=== PATIENT | female | born 1945 | race African-American/Black ===

== ENCOUNTER 2017-12-03 18:41 | Inpatient (IN) | payer OTHER ==
[~2017-12-03] VITALS: Ht 154.9 cm; Wt 73.9 kg
--- NOTE | 2017-12-03 19:05 | NUR ---
BBRA 37 FROM [facility] C/O WEAKNESS SINCE TODAY. PT IS AAOX4. PT DENIES N/V/D. PT DENIES DIZZINESS/BLURRED VISSION AT TIME OF ASSESSMENT, HOWEVER PT DOES STATE + TO DIZZINESS PRIOR TO HER FALL. -KO. SKIN WNL. NO S/S OF ACUTE DISTRESS NOTED. VSS. RESP ECVEN AND UNLABORED. PT NOTED TO BE MILDLY DROWSY, BUT ABLE TO SPEAK FULL SENTENCES WITH CLEAR ARTICULATION. PT PLACED ON COMPOSITION MOLDER AND POX. PT SAFETY AND COMFROT MEASURES IN PLACE. AWAITING MD FOR EVAL.
[2017-12-03 20:08] LABS: BASOPHILS # (AUTO) 0.2 /CMM (0.0-0.2); BASOPHILS % (AUTO) 2.6 % (0.0-2.0); EOSINOPHILS % (AUTO) 2.4 % (0.0-6.0); HEMATOCRIT 33 % (33-45); HEMOGLOBIN 11.2 g/dL (11.5-14.8); LYMPHOCYTES # (AUTO) 0.6 /CMM (0.8-4.8); LYMPHOCYTES % (AUTO) 10.8 % (20.0-44.0); MEAN CORPUSCULAR HGB CONC 34 g/dl (31.0-36.0); MEAN CORPUSCULAR VOLUME 84 fL (82-100); MONOCYTES # (AUTO) 0.4 /CMM (0.1-1.30); MONOCYTES % (AUTO) 6.7 % (2.0-12.0); NEUTROPHILS # (AUTO) 4.7 /CMM (1.8-8.9); NEUTROPHILS % (AUTO) 77.5 % (43.0-81.0); PLATELET COUNT (AUTO) 217 /CMM (150-450); RDW COEFFICIENT OF VARIATION 14.8 (11.5-15.0); RED BLOOD CELL COUNT(AUTO) 3.97 MIL/uL (4.0-5.2)
[2017-12-03 20:18] LABS: CALCIUM, SERUM 9.1 mg/dL (8.5-10.1); CARBON DIOXIDE 28 mmol/L (21-32); CHLORIDE 100 mmol/L (98-107); CREATININE 2.7 mg/dL (0.6-1.3); GLUCOSE 135 mg/dL (74-106); POTASSIUM 3.7 mmol/L (3.5-5.1); SODIUM SERUM 137 mmol/L (136-145); UREA NITROGEN, BLOOD 56 mg/dL (7-18)
[2017-12-03 20:21] LABS: INR 0.97 (0.85-1.15)
[2017-12-03 20:26] LABS: TROPONIN I < 0.017 ng/mL (0.00-0.056)
[2017-12-03] MEDS ORDERED: IV NS 0.9% 1,000 ML BAG IV ONE (21:00)
--- NOTE | 2017-12-03 21:14 | NUR ---
CALLED [facility] FOR PANEL CALL AND DR DIAZ WAS PAGED.
--- NOTE | 2017-12-03 21:27 | NUR ---
PT IS ASSIGNED TO [facility]#: [id number], PT IS DIAGNOSED WITH ACUTE RENAL FAILURE, AND DR DIAZ IS THE ACCEPTING MD.
[2017-12-03] MEDS ORDERED: ATOR20TA PO (21:30)
[2017-12-03] MEDS ORDERED: SERT100T PO (21:30)
[2017-12-03] MEDS ORDERED: BUPR-51 PO (21:30)
[2017-12-03] MEDS ORDERED: IBUP-1953 PO (21:30)
[2017-12-03] MEDS ORDERED: HYDR-3980 PO (21:30)
[2017-12-03] MEDS ORDERED: METO50TA16 PO (21:30)
[2017-12-03] MEDS ORDERED: ANAS1TAB8 PO (21:30)
[2017-12-03] MEDS ORDERED: AMLO10TA4 PO (21:30)
[2017-12-03] MEDS ORDERED: ARIP5TAB10 PO (21:30)
[2017-12-03] MEDS ORDERED: TEMA30CA PO (21:30)
[2017-12-03] MEDS ORDERED: LOSA1TAB39 PO (21:30)
[2017-12-03] MEDS ORDERED: TRAM50TA2 PO (21:30)
[2017-12-03] MEDS ORDERED: LEVO25TA7 PO (21:30)
--- NOTE | 2017-12-03 22:00 | NUR ---
REPORT GIVEN TO IGNACIO/COMFORT ON BEHALF OF PRIMARY NURSE LISET.
[2017-12-03 22:15] VITALS: BP 110/71
--- NOTE | 2017-12-03 22:15 | NUR ---
MS RN ADMITTING NOTES: ADMITTED A 72 YO FEMALE PATIENT WHO WAS BROUGHT TO ER FROM [facility] DUE TO GENERALIZED WEAKNESS. PATIENT ALSO REPORTED THAT SHE HAS BEEN LOSING HER BALANCE AND FALLING MORE OFTEN IN THE PAST 6 MONTHS, THE LATEST OF SHICH WAS LAST FRIDAY. PATIENT WAS BROUGHT TO MS FLOOR VIA GURNEY, AOX4, ON ROOM AIR, BREATHING EVEN AND UNLABORED. BREATH SOUNDS CLEAR TO AUSCULTATION. APPEARS CALM AND IN NO DISTRESS. DENIES PAIN. PATIENT HAS PIV OVER LAC G20, HOWEVER, SINCE PATIENT HAS REPORTED HISTORY OF LEFT PARTIAL MASTECTOMY LAST JUN 2017, RECOMMENDED TO HER THAT IV WILL BE PLACED OVER R ARM, AND PATIENT AGREED. ADMITTING CARE DONE. PROVIDED FOR COMFORT AND SAFETY. BED IN LOWEST AND LOCKED POSITION, SIDERAILS UP X 3, CALL LIGHT WITHIN REACH. WILL CONT TO MONITOR.
--- NOTE | 2017-12-03 23:20 | NUR ---
RN NOTES: PATIENT IS ASKING FOR SLEEPING PILL, AND SHE TAKES TEMAZEPAM 30 MG AT NIGHT FOR HER INSOMNIA. SPOKE TO DR DIAZ FOR SLEEPING PILL, PER DR DIAZ, OK TO CONTINUE TEMAZEPAM 30 MG 1 CAP AT BEDTIME.
[2017-12-03] MEDS ORDERED: MAGNESIUM HYDROXIDE 30 ML UDC PO PRN (23:30)
[2017-12-03] MEDS ORDERED: ACETAMINOPHEN 325 MG TABLET PO PRN (23:30)
[2017-12-03] MEDS ORDERED: HYDROCODONE/APAP 5/325MG 1 EACH TABLET PO PRN (23:30)
[2017-12-03] MEDS ORDERED: Z GUARD REMEDY 2 OZ OINT TP PRN (23:30)
[2017-12-03] MEDS ORDERED: MAG HYDROX/AL HYDROX/SIMETH 30 ML UDC PO PRN (23:30)
[2017-12-03] MEDS ORDERED: TRAMADOL HCL 50 MG TABLET PO PRN (23:30)
[2017-12-03] MEDS ORDERED: ONDANSETRON HCL/PF 4 MG/2 ML VIAL IVP PRN (23:30)
[2017-12-04] MEDS: IV NS 0.9% 1,000 ML IV PRN ×2 (00:08→15:25)
[2017-12-04] MEDS: TEMAZEPAM 15 MG CAPSULE PO PRN (01:06)
[2017-12-04 04:00] VITALS: BP 109/54
--- NOTE | 2017-12-04 06:35 | NUR ---
RN NOTES: RECEIVED CRITICAL LAB CALL FROM [facility] (LAB). PATIENT'S PLATELET COUNT IS 49. ASKED FOR RE-DRAW SINCE LAST NIGHT, PLATELET WAS 217.
[2017-12-04 06:47] LABS: CALCIUM, SERUM 8.9 mg/dL (8.5-10.1); CARBON DIOXIDE 24 mmol/L (21-32); CHLORIDE 104 mmol/L (98-107); GLUCOSE 115 mg/dL (74-106); MAGNESIUM 2.5 mg/dL (1.8-2.4); PHOSPHORUS 4.4 mg/dL (2.5-4.9); POTASSIUM 3.3 mmol/L (3.5-5.1); SODIUM SERUM 139 mmol/L (136-145); UREA NITROGEN, BLOOD 56 mg/dL (7-18)
[2017-12-04 07:18] LABS: BASOPHILS % (AUTO) 0.1 % (0.0-2.0); EOSINOPHILS % (AUTO) 1.7 % (0.0-6.0); HEMATOCRIT 28 % (33-45); LYMPHOCYTES # (AUTO) 0.7 /CMM (0.8-4.8); LYMPHOCYTES % (AUTO) 12.8 % (20.0-44.0); MEAN CORPUSCULAR HGB CONC 33 g/dl (31.0-36.0); MEAN CORPUSCULAR VOLUME 84 fL (82-100); MONOCYTES # (AUTO) 0.6 /CMM (0.1-1.30); NEUTROPHILS # (AUTO) 4.3 /CMM (1.8-8.9); NEUTROPHILS % (AUTO) 75.4 % (43.0-81.0); PLATELET COUNT (AUTO) 166 /CMM (150-450); RDW COEFFICIENT OF VARIATION 15.9 (11.5-15.0); RED BLOOD CELL COUNT(AUTO) 3.28 MIL/uL (4.0-5.2); WHITE BLOOD COUNT (AUTO) 5.8 K/uL (4.3-11.0)
--- NOTE | 2017-12-04 07:20 | NUR ---
MS RN CLOSING NOTES: PATIENT IN BED, AOX4, ON ROOM AIR, BREATHING EVEN AND UNLABORED. APPEARS CALM AND IN NO DISTRESS. PIV OVER LAC G 22 INTACT AND INFUSING WELL WITH NS RUNNING AT 75 ML/HR. NO ACUTE CHANGE IN CONDITION NOTED THROUGH SHIFT. BED IN LOWEST AND LOCKED POSITION, SIDERAILS UP X 3, CALL LIGHT WITHIN REACH. WILL ENDORSE TO AM RN FOR EUN.
--- NOTE | 2017-12-04 07:28 | NUR ---
DRAFTER DETAIL OPENING NOTES PATIENT IS ALERT AND ORIENTED X4. RECEIVED PATIENT IN STABLE CONDITION. IN NO APPARENT DISTRESS. BEDSIDE RAILS ARE UPX2. BED IS LOCKED AND LOWERED. CALL LIGHT IS WITHIN REACH. IV LINE IS INTACT AND PATENT. WILL CONTINUE TO MONITOR.
[2017-12-04 08:00] VITALS: BP 133/62
[2017-12-04] MEDS: AMLODIPINE BESYLATE 10 MG TABLET PO SCH (08:31)
[2017-12-04] MEDS: ANASTROZOLE 1 MG TABLET PO SCH (08:31)
[2017-12-04] MEDS: BUPROPION XL 150 MG TAB.ER.24 PO SCH (08:32)
[2017-12-04] MEDS: LEVOTHYROXINE SODIUM 25 MCG TABLET PO SCH (08:32)
[2017-12-04] MEDS: ATORVASTATIN 10 MG TABLET PO SCH (08:32)
[2017-12-04] MEDS: ARIPIPRAZOLE 5 MG TABLET PO SCH (08:32)
[2017-12-04] MEDS: LOSARTAN/HCTZ 50-12.5MG/ 1 EA TABLET PO SCH (08:33)
[2017-12-04] MEDS: METOPROLOL TARTRATE 50 MG TABLET PO SCH ×2 (08:33→16:46)
[2017-12-04] MEDS: SERTRALINE HCL 50 MG TABLET PO SCH (08:33)
[2017-12-04] MEDS: HYDROCODONE/APAP 10/325MG 1 EA TABLET PO SCH ×3 (08:35→20:35)
[2017-12-04] MEDS ORDERED: POTASSIUM CHLORIDE 10 MEQ TABLET.SA PO ONE (12:30)
--- NOTE | 2017-12-04 12:45 | NUR ---
ADMINISTERED POTASSIUM 10MEQ. WAS UNABLE TO SCAN PACKAGE DUE TO COMPUTER SHUTTING OFF.
[2017-12-04 16:00] VITALS: BP 110/54
--- NOTE | 2017-12-04 18:58 | NUR ---
MS RN CLOSING NOTES PATIENT IS IN STABLE CONDITION. IN NO APPARENT DISTRESS. BEDSIDE RAILS ARE UPX2. BED IS LOCKED AND LOWERED. CALL LIGHT IS WITHIN REACH. ALL NEEDS WERE MET. IV LINE IS INTACT AND PATENT. WILL ENDORSE CARE TO ULTIMATE HOOPS TRAINER NURSE FOR EUN.
--- NOTE | 2017-12-04 19:10 | NUR ---
MS RN NOTES RECEIVED PT IN BED, AWAKE,WATCHING TV AT THIS TIME, A/ 0 X 4, VERBALLY RESPONSIVE. IV SITE ON RAC INTACT AND PATENT, IVF INFUSING WELL. NO S/S OF INFILTRATION NOTED. DENIES ANY PAIN OR DISCOMFORT AT THIS TIME. ALL NEEDS ATTENDED AND MET. KEPT COMFORTABLE. SAFETY/ FALL PRECAUTIONS OBSERVED. CALL LIGHT WITHIN REACH. WILL CONT TO MONITOR.
[2017-12-04 20:00] VITALS: BP 128/66
[2017-12-04 20:33] VITALS: BP 128/66
[2017-12-05] MEDS: TEMAZEPAM 15 MG CAPSULE PO PRN ×2 (00:11→21:49)
[2017-12-05] MEDS: IV NS 0.9% 1,000 ML IV PRN (06:29)
--- NOTE | 2017-12-05 06:45 | NUR ---
MS RN NOTES PT IN BED, RESTING COMFORTABLY AT THIS TIME. AROUSES EASILY. A/ 0 X 4, VERBALLY RESPONSIVE. IV SITE ON RAC INTACT AND PATENT, IVF INFUSING WELL. NO S/S OF INFILTRATION NOTED. DENIES ANY PAIN OR DISCOMFORT AT THIS TIME. ALL NEEDS ATTENDED AND MET. KEPT COMFORTABLE. SAFETY/ FALL PRECAUTIONS OBSERVED. CALL LIGHT WITHIN REACH. WILL ENDORSE TO NEXT SHIFT FOR EUN.
[2017-12-05 06:55] LABS: BASOPHILS % (AUTO) 0.3 % (0.0-2.0); EOSINOPHILS % (AUTO) 3.9 % (0.0-6.0); HEMATOCRIT 28 % (33-45); HEMOGLOBIN 9.1 g/dL (11.5-14.8); LYMPHOCYTES % (AUTO) 25.2 % (20.0-44.0); MEAN CORPUSCULAR HGB CONC 33 g/dl (31.0-36.0); MEAN CORPUSCULAR VOLUME 84 fL (82-100); MONOCYTES # (AUTO) 0.4 /CMM (0.1-1.30); MONOCYTES % (AUTO) 9.9 % (2.0-12.0); NEUTROPHILS # (AUTO) 2.3 /CMM (1.8-8.9); NEUTROPHILS % (AUTO) 60.7 % (43.0-81.0); PLATELET COUNT (AUTO) 154 /CMM (150-450); RED BLOOD CELL COUNT(AUTO) 3.33 MIL/uL (4.0-5.2); WHITE BLOOD COUNT (AUTO) 3.8 K/uL (4.3-11.0)
[2017-12-05 07:11] LABS: CALCIUM, SERUM 8.6 mg/dL (8.5-10.1); CARBON DIOXIDE 27 mmol/L (21-32); CHLORIDE 106 mmol/L (98-107); CREATININE 1.4 mg/dL (0.6-1.3); GLUCOSE 82 mg/dL (74-106); POTASSIUM 3.3 mmol/L (3.5-5.1); SODIUM SERUM 141 mmol/L (136-145); UREA NITROGEN, BLOOD 43 mg/dL (7-18)
--- NOTE | 2017-12-05 07:40 | NUR ---
MS RN OPENING NOTES RECEIVED PATIENT IN STABLE CONDITON. IN NO APPARENT DISTRESS. BEDSIDE RAILS ARE UPX2. BED IS LOCKED AND LOWERED. CALL LIGHT IS WITHIN REACH. IV LINE IS INTACT AND PATENT. WILL CONTINUE TO MONITOR.
[2017-12-05 08:00] VITALS: BP 149/65
[2017-12-05] MEDS: LEVOTHYROXINE SODIUM 25 MCG TABLET PO SCH (08:48)
[2017-12-05] MEDS: ANASTROZOLE 1 MG TABLET PO SCH (08:48)
[2017-12-05] MEDS: BUPROPION XL 150 MG TAB.ER.24 PO SCH (08:48)
[2017-12-05] MEDS: AMLODIPINE BESYLATE 10 MG TABLET PO SCH (08:49)
[2017-12-05] MEDS: LOSARTAN/HCTZ 50-12.5MG/ 1 EA TABLET PO SCH (08:49)
[2017-12-05] MEDS: ARIPIPRAZOLE 5 MG TABLET PO SCH (08:49)
[2017-12-05] MEDS: METOPROLOL TARTRATE 50 MG TABLET PO SCH ×2 (08:50→17:04)
[2017-12-05] MEDS: SERTRALINE HCL 50 MG TABLET PO SCH (08:50)
[2017-12-05] MEDS: HYDROCODONE/APAP 10/325MG 1 EA TABLET PO SCH ×3 (08:50→21:42)
[2017-12-05] MEDS: ATORVASTATIN 10 MG TABLET PO SCH (08:50)
--- NOTE | 2017-12-05 08:58 | NUR ---
HELD METOPROLO. PATIENTS HEART RATE IS 57.
[2017-12-05] MEDS ORDERED: POTASSIUM CHLORIDE 20 MEQ TAB.PRT.SR PO SCH (10:00)
--- NOTE | 2017-12-05 11:06 | NUR ---
WOUND CARE CONSULT: PT PRESENTS WITH INTACT SKIN, SOME REDNESS TO BREASTFOLDS AND SACRAL SCARRING NOTED, PRESENT ON ADMISSION. RECOMMENDATIONS MADE FOR SKIN PROTECTION AND DISCUSSED WITH NURSING STAFF. PT IS INCONTINENT. CURRENT JAIDEN SCORE IS 14. WILL SEE PRN. VIZCAINO IN AGREEMENT WITH PLAN OF CARE. Addendum: 12/05/17 at 1108 by GINO BARTON WNDNU Amended: Links added.
[2017-12-05 12:13] LABS: THYROID STIMULATING HORMONE 2.733 uIU/mL (0.358-3.74)
[2017-12-05 15:42] LABS: APPEARANCE,URINE CLEAR (CLEAR); BILIRUBIN,URINE NEGATIVE (NEGATIVE); BLOOD, URINE NEGATIVE Ery/uL (NEGATIVE); COLOR,URINE YELLOW (YELLOW); KETONES,URINE NEGATIVE (NEGATIVE); LEUKOCYTE ESTERASE ,URINE NEGATIVE (NEGATIVE); NITRITE, URINE NEGATIVE (NEGATIVE); PROTEIN,URINE NEGATIVE (NEGATIVE); UGLUCOSE NEGATIVE (NEGATIVE); UROBILINOGEN,URINE 0.2 EU/dL (0.2)
[2017-12-05 16:00] VITALS: BP_SYST 121; BP_SYST 132; BP_DIAS 65; BP_DIAS 83
[2017-12-05] MEDS: POLYETHYLENE GLYCOL 3350 17 GM POWD.PACK PO PRN (17:03)
--- NOTE | 2017-12-05 18:30 | NUR ---
MS RN CLOSING NOTES PATIENT IS ALERT AND ORIENTED X4. IN NO APPARENT DISTRESS. BEDSIDE RAILS ARE UPX2. BED IS LOCKED AND LOWERED. CALL LIGHT IS WITHIN REACH. ALL NEEDS WERE MET. WILL ENDORSE CARE TO ANALYTIC PROGRAMMER NURSE FOR EUN. IV LINE IS INTACT AND PATENT
--- NOTE | 2017-12-05 19:20 | NUR ---
RN NOTES: RECEIVED AWAKE ON BED IN SEMI FOWLERS POSITION,A/OX4,ON ROOM AIR,IV CANNULA INTACT ON RIGHT WRIST g#22 WITH NS AT 75 ML/HR ONGOING,FOR STOOL OCCULT BLOOD, NO BM, HAD MIRALAX IN MORNING SHIFT AWAITING FOR RESULT,FALL,SAFETY AND ASPIRATION PRECAUTION OBSERVED, PER ENDORSEMENT PATIENT HAD MRSA NARES(+),AWAITING FOR INSTRUCTION FROM CN FOR ROOM CHANGE,NEED ISOLATION PRECAUTION.
[2017-12-05 20:00] VITALS: BP 118/61
--- NOTE | 2017-12-05 20:00 | NUR ---
RN NOTES: EXPLAINED TO PATIENT REGARDING ROOM CHANGE FOR ISOLATION PRECAUTION PURPOSE, SHE AGREED AND WAS MOVE TO ROOM 319, ISOLATION PRECAUTION OBSERVE FOR MRSA-NARES.
--- NOTE | 2017-12-05 22:00 | NUR ---
RN NOTES: ROUTINE PAIN MEDICATION GIVEN, THEN SHE ALSO REQUESTED FOR SLEEPING PILL,CALLS AND NEEDS ATTENDED,FALL AND SAFETY PRECAUTION OBSERVE, KEPT CALL LIGHT WITHIN EASY REACH AND INSTRUCT TO CALL FOR ASSISTANCE.
[2017-12-06] MEDS: IV NS 0.9% 1,000 ML IV PRN ×2 (03:29→16:54)
--- NOTE | 2017-12-06 03:34 | NUR ---
RN NOTES: ASLEEP IN THE NIGHT,KEPT ON CLOSE WATCH, VISUAL CHECK AT FREQUENT INTERVAL, NON PHARMACOLOGIC INTERVENTION RENDERED, ROOM ON DIM LIT AND PLAYED SOFT MUSIC,IVF FINISHED AT 0329, NEW BOTTLE STARTED NS AT 75 ML/HR VIA INFUSION PUMP.
--- NOTE | 2017-12-06 06:28 | NUR ---
RN NOTES: ASLEEP IN THE NIGHT, NO PAIN AND DISCOMFORT IN THE MORNING,IVF ONGOING,STILL NO BM,KEPT IN COMFORTABLE POSITION, BED LOW AND LOCKED, CALL LIGHT WITHIN EASY REACH ENDORSED FOR CONTINUITY OF CARE.
[2017-12-06 07:02] LABS: CALCIUM, SERUM 8.4 mg/dL (8.5-10.1); CARBON DIOXIDE 29 mmol/L (21-32); CHLORIDE 107 mmol/L (98-107); CREATININE 1.3 mg/dL (0.6-1.3); GLUCOSE 85 mg/dL (74-106); POTASSIUM 3.8 mmol/L (3.5-5.1); SODIUM SERUM 143 mmol/L (136-145); UREA NITROGEN, BLOOD 40 mg/dL (7-18)
--- NOTE | 2017-12-06 07:24 | NUR ---
MS/RN OPENING NOTES RECEIVED PT IN BED AWAKE IN NO ACUTE SIGNS OF DISTRESS. A/O X4 AND ABLE TO MAKE NEEDS KNOWN, DENIES PAIN OR DISCOMFORTS AT THIS TIME. CONTACT PRECAUTION MAINTAINED FO RMRSA OF NARES. ON ROOM AIR, BREATHING EVEN AND UNLABORED. IV ACCESS ON RIGHT WRIST INTACT AND PATENT, IVF OF NS @ 75ML/HR INFUSING, NO S/S OF INFILTRATION NOTED. HOB ELEVATED. BED IN LOW/LOCKED POSITION WITH B/L UPPER SIDE-RAILS UP. CALL LIGHT WITHIN EASY REACH. WILL CONTINUE TO MONITOR PT.
[2017-12-06] MEDS: LEVOTHYROXINE SODIUM 25 MCG TABLET PO SCH (07:44)
[2017-12-06 08:00] VITALS: BP 120/71
--- NOTE | 2017-12-06 08:10 | NUR ---
RN NOTES SPECIMEN FOR RAPID INFLUENZA ANTIGEN A + B COLLECTED AND CALLED LAB TO PICK SPECIMEN FROM [facility].
[2017-12-06 08:23] LABS: BASOPHILS % (AUTO) 0.4 % (0.0-2.0); EOSINOPHILS % (AUTO) 4.6 % (0.0-6.0); HEMATOCRIT 28 % (33-45); HEMOGLOBIN 9.1 g/dL (11.5-14.8); LYMPHOCYTES # (AUTO) 0.9 /CMM (0.8-4.8); MEAN CORPUSCULAR HGB CONC 33 g/dl (31.0-36.0); MEAN CORPUSCULAR VOLUME 85 fL (82-100); MONOCYTES # (AUTO) 0.4 /CMM (0.1-1.30); MONOCYTES % (AUTO) 10.4 % (2.0-12.0); NEUTROPHILS # (AUTO) 2.3 /CMM (1.8-8.9); NEUTROPHILS % (AUTO) 61.6 % (43.0-81.0); PLATELET COUNT (AUTO) 176 /CMM (150-450); RDW COEFFICIENT OF VARIATION 16.1 (11.5-15.0); RED BLOOD CELL COUNT(AUTO) 3.31 MIL/uL (4.0-5.2); WHITE BLOOD COUNT (AUTO) 3.8 K/uL (4.3-11.0)
[2017-12-06] MEDS: ARIPIPRAZOLE 5 MG TABLET PO SCH (09:30)
[2017-12-06] MEDS: SERTRALINE HCL 50 MG TABLET PO SCH (09:33)
[2017-12-06] MEDS: BUPROPION XL 150 MG TAB.ER.24 PO SCH (09:34)
[2017-12-06] MEDS: ATORVASTATIN 10 MG TABLET PO SCH (09:34)
[2017-12-06] MEDS: AMLODIPINE BESYLATE 10 MG TABLET PO SCH (09:34)
[2017-12-06] MEDS: METOPROLOL TARTRATE 50 MG TABLET PO SCH ×2 (09:35→16:49)
[2017-12-06] MEDS: ANASTROZOLE 1 MG TABLET PO SCH (09:35)
[2017-12-06] MEDS: HYDROCODONE/APAP 10/325MG 1 EA TABLET PO SCH ×3 (09:36→21:52)
[2017-12-06] MEDS: POLYETHYLENE GLYCOL 3350 17 GM POWD.PACK PO PRN (12:05)
[2017-12-06 16:00] VITALS: BP 123/69
--- NOTE | 2017-12-06 17:25 | NUR ---
RN NOTES STOOL SPECIMEN FOR OCCULT TEST COLLECTED AND CALLED LAB TO PICK SPECIMEN FROM [facility].
--- NOTE | 2017-12-06 18:16 | NUR ---
RN NOTES RESULTS OF INFLUENZA ANTIGEN A & B, STOOL FOR OCCULT BLOOD WERE NEGATIVE.
[2017-12-06 18:29] LABS: OCCULT BLOOD STOOL NEGATIVE (NEGATIVE)
--- NOTE | 2017-12-06 18:34 | NUR ---
MS/RN CLOSING NOTES PATIENT IN BED RESTING AT MODERATE HIGH BACKREST POSITION. A/O X4 AND ABLE TO MAKE NEEDS KNOWN. ON ROOM AIR, BREATHING EVEN AND UNLABORED. IV ACCESS ON RIGHT WRIST INTACT AND PATENT, IVF OF NS @ 75 ML/HR INFUSING WELL, NO S/S OF INFILTRATION NOTED. CONTACT PRECAUTIONS MAINTAINED FO MRSA OF NARES. ALL SAFETY MEASURES KEPT IN PLACE. HOB ELEVATED. BED IN LOW/LOCKED POSITION WITH B/L UPPER SIDE-RAILS UP. CALL LIGHT AND BEDSIDE TABLE PLACED WITHIN EASY REACH OF PATIENT. AL NEEDS AND CARE ATTENDED WELL. WILL ENDORSE TO ENVELOPE STAMPING MACHINE OPERATOR NURSE FOR EUN..
--- NOTE | 2017-12-06 19:30 | NUR ---
MS CAROL INITIAL NOTES RECEIVED REPORT FROM AM NURSE JENNIFER, WHILE CHECKING THE PATIENT AT THE SAME TIME. SHE'S WATCHING TV AT THIS TIME. ,DENIES ANY PAIN OR ANY DISCOMFORT. IVF STILL INFUSING IN HER RIGHT WRIST NO REDNESS NOTED. PLACE CALL LIGHT AT REACH AND ENCOURAGE PT TO USE IF SHE NEEDS SOME HELPED . WILL CONTINUE TO MONITOR.
[2017-12-06 20:00] VITALS: BP 138/98
[2017-12-06] MEDS: LOSARTAN POTASSIUM 50 MG TABLET PO SCH (21:51)
--- NOTE | 2017-12-06 22:00 | NUR ---
MS CAROL NOTES ROUTINE MEDS GIVEN ORDERED, TOLERATED WELL BY THE PATIENT N SIGNS OF ANY N/V NOTED. KEPT HER WARM AND COMFORTABLE AT ALL TIMES. PLACE CALL LIGHT AT REACH. WILL CONTINUE MONITORING.
[2017-12-06 22:19] VITALS: BP 138/61
[2017-12-06] MEDS: TEMAZEPAM 15 MG CAPSULE PO PRN (23:31)
--- NOTE | 2017-12-06 23:35 | NUR ---
MS CAROL NOTES PT CALLED. ASKING FOR HER SLEEP MEDICATION, PAIN SUBSIDES, RESTORIL PO GIVEN ORDERED. EDUCATE PT REGARDING POSSIBLE SIDE EFFECT AND PT UNDERSTOOD WELL. WILL CONTINUE TO MONITOR.
--- NOTE | 2017-12-07 07:00 | NUR ---
MS BRUSH MAKER CLOSING NOTES PT WOKE UP AND SEEMS HAPPY AND COMFORTABLE . SLEPT WELL AND STABLE DAMIAN THE NIGHT. ALL DUE MEDS GIVEN AND ALL NEEDS MET. KEPT HER WARM AND COMFORTABLE AT ALL TIMES. PLACE CALL LIGHT AT REACH.NO SIGNS OF ANY DISCOMFORT OR ANY ACUTE DISTRESS. WILL ENDORSE TO AM NURSE FOR CONTINUITY OF CARE.
--- NOTE | 2017-12-07 07:17 | NUR ---
MS RN OPENING NOTES RECEIVED PATIENT IN BED AWAKE ALERT AND ORIENTED X4. HOB ELEVATED. PT ABLE TO MAKE NEEDS KNOWN, DENIES PAIN OR DISCOMFORTS AT THIS TIME. CONTACT PRECAUTION MAINTAINED FO MRSA OF NARES. ON ROOM AIR, BREATHING EVEN AND UNLABORED. IVF OF NS @ 75ML/HR INFUSING WELL TO RIGHT WRIST IV LINE, NO S/S OF INFILTRATION NOTED. ALL SAFETY MEASURES IN PLACE. BED IN LOW/LOCKED POSITION WITH B/L UPPER SIDE-RAILS UP. CALL LIGHT WITHIN EASY REACH. WILL CONTINUE TO MONITOR PT.
[2017-12-07] MEDS: LEVOTHYROXINE SODIUM 25 MCG TABLET PO SCH (07:40)
[2017-12-07 08:00] VITALS: BP 142/66
[2017-12-07] MEDS: ARIPIPRAZOLE 5 MG TABLET PO SCH (08:44)
[2017-12-07] MEDS: BUPROPION XL 150 MG TAB.ER.24 PO SCH (08:44)
[2017-12-07] MEDS: HYDROCODONE/APAP 10/325MG 1 EA TABLET PO SCH ×2 (08:45→12:53)
[2017-12-07] MEDS: METOPROLOL TARTRATE 50 MG TABLET PO SCH ×2 (08:45→16:23)
[2017-12-07] MEDS: AMLODIPINE BESYLATE 10 MG TABLET PO SCH (08:45)
[2017-12-07] MEDS: ANASTROZOLE 1 MG TABLET PO SCH (08:46)
[2017-12-07] MEDS: ATORVASTATIN 10 MG TABLET PO SCH (08:46)
[2017-12-07] MEDS: SERTRALINE HCL 50 MG TABLET PO SCH (08:46)
[2017-12-07] MEDS: LOSARTAN POTASSIUM 50 MG TABLET PO SCH (08:46)
[2017-12-07] MEDS ORDERED: ERGOCALCIFEROL (VITAMIN D 2) 50,000 UNIT CAPSULE PO SCH (09:30)
[2017-12-07 16:00] VITALS: BP 123/63
[2017-12-07 16:23] VITALS: BP 123/63
--- NOTE | 2017-12-07 16:51 | NUR ---
RN NOTES PATIENT FOR DISCHARGE TODAY TO [facility], CALLED AND REPORT GIVEN TO NURSE JAILKEEPER KENTRELL AND SAID THAT PT WILL BE IN ROOM 110B.
[2017-12-07] MEDS ORDERED: MUPIROCIN OINT 2% 22 GM TUBE SCH (17:00)
--- NOTE | 2017-12-07 18:35 | NUR ---
RN DISCHARGED NOTES PATIENT DISCHARGED TO [facility] IN STABLE CONDITION. A/O X4, SAME VERBALLY RESPONSIVE WITH NO C/O PAIN VOICED DURING DISCHARGE. ALL NEEDS AND CARE ATTENDED WELL. PT ABLE TO WALK WITH FWW WITH SUPERVISION. V/S TAKEN AND RECORDED. SKIN IS INTACT BUT HAS BRUISES ON LEFT HIP/THIGH AND RIGHT ARM, PHOTOS WERE TAKEN AND FILED ON CHART. PATIENT HAD TAKEN BOTH PNA AND FLU VACCINE S LAST YEAR. BELONGINGS CHECKED, COUNTED AND SIGNED FORM. HEALTH TEACHINGS GIVEN AND VERBALIZED UNDERSTANDING. PT LEFT UNIT AT 1830 VIA GURNEY IN NO ACUTE SIGNS OF DISTRESS ACCOMPANIED BY 2 EMT'S. PUBLIC INFORMATION SPECIALIST ANNAMARIA GALLEGOS AND CHARGE NURSE AWARE OF DISCHARGE.
== END 2017-12-07 18:31 | DRG 682 ==
LOC: ER 18:51 → TELE 21:48 → MED 12-04 16:52
PROVIDERS: ADMIT Internal Medicine; ATTEND Internal Medicine
DX: N17.0 Acute kidney failure with tubular necrosis (principal); G93.41 Metabolic encephalopathy; I34.0 Nonrheumatic mitral (valve) insufficiency; D63.8 Anemia in other chronic diseases classified elsewhere; D62 Acute posthemorrhagic anemia; I25.10 Atherosclerotic heart disease of native coronary artery without angina pectoris; E03.9 Hypothyroidism, unspecified; F32.9 Major depressive disorder, single episode, unspecified; F41.9 Anxiety disorder, unspecified; Z86.73 Personal history of transient ischemic attack (TIA), and cerebral infarction without residual deficits; Z85.3 Personal history of malignant neoplasm of breast; Z86.59 Personal history of other mental and behavioral disorders; E87.6 Hypokalemia; I12.9 Hypertensive chronic kidney disease with stage 1 through stage 4 chronic kidney disease, or unspecified chronic kidney disease; N18.9 Chronic kidney disease, unspecified; T50.2X5A Adverse effect of carbonic-anhydrase inhibitors, benzothiadiazides and other diuretics, initial encounter; T39.395A Adverse effect of other nonsteroidal anti-inflammatory drugs [NSAID], initial encounter; Y92.129 Unspecified place in nursing home as the place of occurrence of the external cause; Z22.322 Carrier or suspected carrier of Methicillin resistant Staphylococcus aureus
CPT/HCPCS: 36415; 70450-TC; 71045-TC; 80048-TC; 81000-TC; 82272-TC; 82728-TC; 83540-TC; 83735-TC; 84100-TC; 84443-TC; 84484-TC; 85025-TC; 85730-TC; 87081-TC; 87400; 93307-TC; 97116-TC; 97530-TC; A4606; J7030; Z7610

== ENCOUNTER 2018-03-26 12:07 | Emergency (ER) | payer MEDICARE, MEDICAID ==
[~2018-03-26] VITALS: Ht 160 cm; Wt 87.1 kg
[~2018-03-26 12:07] MED LIST: AMLO10TA4 PO; ANAS1TAB8 PO; ARIP5TAB10 PO; ATOR20TA PO; BUPR-51 PO; HYDR-3980 PO; LEVO25TA7 PO; METO50TA16 PO; SERT100T PO; TEMA30CA PO; TRAM50TA2 PO
--- NOTE | 2018-03-26 12:10 | NUR ---
PATIENT TO ED DT R SHOULDER PAIN S/P MECHANICAL FALL. PATIENT IS STABLE. VSS
[2018-03-26] MEDS ORDERED: IV NS 0.9% 500 ML BAG IV ONE (14:00)
[2018-03-26 14:08] LABS: BASOPHILS % (AUTO) 0.3 % (0.0-2.0); EOSINOPHILS % (AUTO) 3.5 % (0.0-6.0); HEMATOCRIT 31 % (33-45); HEMOGLOBIN 9.8 g/dL (11.5-14.8); LYMPHOCYTES # (AUTO) 0.5 /CMM (0.8-4.8); LYMPHOCYTES % (AUTO) 8.7 % (20.0-44.0); MEAN CORPUSCULAR HEMOGLOBIN 27 PG (26.0-33.0); MEAN CORPUSCULAR HGB CONC 31 g/dl (31.0-36.0); MEAN CORPUSCULAR VOLUME 84 fL (82-100); MONOCYTES # (AUTO) 0.4 /CMM (0.1-1.30); MONOCYTES % (AUTO) 8.2 % (2.0-12.0); NEUTROPHILS # (AUTO) 4.1 /CMM (1.8-8.9); NEUTROPHILS % (AUTO) 79.3 % (43.0-81.0); PLATELET COUNT (AUTO) 191 /CMM (150-450); RED BLOOD CELL COUNT(AUTO) 3.69 MIL/uL (4.0-5.2); WHITE BLOOD COUNT (AUTO) 5.2 K/uL (4.3-11.0)
[2018-03-26 14:18] LABS: CALCIUM, SERUM 9.5 mg/dL (8.5-10.1); CARBON DIOXIDE 32 mmol/L (21-32); CHLORIDE 101 mmol/L (98-107); CREATININE 1.1 mg/dL (0.6-1.3); GLUCOSE 89 mg/dL (74-106); POTASSIUM 4.4 mmol/L (3.5-5.1); SODIUM SERUM 135 mmol/L (136-145); UREA NITROGEN, BLOOD 29 mg/dL (7-18)
[2018-03-26 14:26] LABS: TROPONIN I < 0.017 ng/mL (0.00-0.056)
[2018-03-26 15:12] LABS: APPEARANCE,URINE Clear (CLEAR); BILIRUBIN,URINE Negative (NEGATIVE); BLOOD, URINE Negative Ery/uL (NEGATIVE); COLOR,URINE Yellow (YELLOW); KETONES,URINE Negative (NEGATIVE); LEUKOCYTE ESTERASE ,URINE Negative (NEGATIVE); NITRITE, URINE Negative (NEGATIVE); PH,URINE 7.5 (5.0-8.0); PROTEIN,URINE Negative (NEGATIVE); UGLUCOSE Negative (NEGATIVE); UROBILINOGEN,URINE 0.2 EU/dL (0.2)
[2018-03-26 15:13] VITALS: BP 146/80
[2018-03-26] MEDS ORDERED: HYDROCODONE/APAP 5/325MG 1 EACH TABLET ONE (15:26)
--- NOTE | 2018-03-26 15:28 | NUR ---
pt to ct
[2018-03-26] MEDS ORDERED: HYDROCODONE/APAP 5/325MG 1 EACH TABLET PO ONE (15:30)
--- NOTE | 2018-03-26 15:46 | NUR ---
CALLED [facility] FOR TRANSPORT ETA OF 1290 WAS GIVEN. TRIP#[id number]
== END 2018-03-26 17:05 | disposition home or self-care (01) ==
LOC: ER 12:53
DX: M25.512 Pain in left shoulder (principal); M25.511 Pain in right shoulder; M25.562 Pain in left knee; M25.561 Pain in right knee; I10 Essential (primary) hypertension; K21.9 Gastro-esophageal reflux disease without esophagitis; I67.2 Cerebral atherosclerosis; Z96.643 Presence of artificial hip joint, bilateral; W18.30XA Fall on same level, unspecified, initial encounter; Y93.01 Activity, walking, marching and hiking; Y92.091 Bathroom in other non-institutional residence as the place of occurrence of the external cause; Y99.8 Other external cause status
CPT/HCPCS: 36415; 70450; 71045; 73030 ×2; 73560 ×2; 80048; 81001; 84484; 85025; 93005; 99285; A4606; J7040; 81000-TC; Z7610

== ENCOUNTER 2021-08-28 20:41 | Emergency (ER) | payer OTHER, MEDICAID ==
[~2021-08-28] VITALS: Ht 170.2 cm; Wt 122.0 kg
[~2021-08-28 20:41] MED LIST changes: -BUPR-51 PO; +BUPR-54 PO
--- NOTE | 2021-08-28 20:53 | NUR ---
[id number] FROM [facility] C/O LOWER ABDOMINAL "SHARP PAIN" X1DAY TYLENOL 1 HOUR DETECTIVE SERGEANT. -N/V/D. PATIENT ALERT AND ORIENTED X3 NON AMBULATORY BROUGHT IN BY STRETCHER WITH NON LABORED BREATHING IN BED 06.
[2021-08-28 21:10] LABS: BASOPHILS % (AUTO) 0.3 % (0.0-2.0); EOSINOPHILS % (AUTO) 1.7 % (0.0-6.0); HEMATOCRIT 31 % (33-45); HEMOGLOBIN 9.9 g/dL (11.5-14.8); LYMPHOCYTES # (AUTO) 0.7 K/uL (0.8-4.8); LYMPHOCYTES % (AUTO) 7.9 % (20.0-44.0); MEAN CORPUSCULAR HGB CONC 32 g/dl (31.0-36.0); MEAN CORPUSCULAR VOLUME 83 fL (82-100); MONOCYTES # (AUTO) 0.5 K/uL (0.1-1.30); MONOCYTES % (AUTO) 5.4 % (2.0-12.0); NEUTROPHILS # (AUTO) 7.3 K/uL (1.8-8.9); NEUTROPHILS % (AUTO) 84.7 % (43.0-81.0); PLATELET COUNT (AUTO) 225 K/uL (150-450); RED BLOOD CELL COUNT(AUTO) 3.77 MIL/uL (4.0-5.2); WHITE BLOOD COUNT (AUTO) 8.6 K/uL (4.3-11.0)
[2021-08-28] MEDS ORDERED: HYDROCODONE/APAP 5/325MG TABLET ONE (21:26)
[2021-08-28] MEDS ORDERED: HYDROCODONE/APAP 5/325MG TABLET PO ONE (21:30)
--- NOTE | 2021-08-28 21:57 | NUR ---
urine sean obtained and sent to lab
[2021-08-28 21:59] LABS: ALANINE AMINOTRANSFERASE 19 U/L (12-78); ALKALINE PHOSPHATASE 93 U/L (46-116); ASPARTATE AMINOTRANSFERASE 15 U/L (15-37); BILIRUBIN,DIRECT 0.1 mg/dL (0.0-0.2); BILIRUBIN,TOTAL 0.4 mg/dL (0.2-1.0); CALCIUM, SERUM 9.8 mg/dL (8.5-10.1); CARBON DIOXIDE 29 mmol/L (21-32); CHLORIDE 99 mmol/L (98-107); CREATININE 1.5 mg/dL (0.6-1.3); GLUCOSE 125 mg/dL (74-106); LIPASE 89 U/L (73-393); POTASSIUM 3.6 mmol/L (3.5-5.1); SODIUM SERUM 137 mmol/L (136-145); TOTAL PROTEIN, SERUM 7.9 g/dL (6.4-8.2); UREA NITROGEN, BLOOD 28 mg/dL (7-18)
[2021-08-28 22:37] LABS: BILIRUBIN,URINE NEGATIVE (NEGATIVE); COLOR,URINE YELLOW (YELLOW); LEUKOCYTE ESTERASE ,URINE SMALL (NEGATIVE); NITRITE, URINE NEGATIVE (NEGATIVE); PROTEIN,URINE 100 mg/dl (NEGATIVE); UGLUCOSE NEGATIVE (NEGATIVE); UROBILINOGEN,URINE 0.2 EU/dL (0.2)
--- NOTE | 2021-08-28 22:52 | NUR ---
PT RETURNED TO ER BED [address]
[2021-08-28] MEDS ORDERED: NITR100C6 PO (23:27)
[2021-08-28] MEDS ORDERED: NITROFURANTOIN/MONOHYDRATE MACROCRYSTALS 100 MG CAPSULE PO ONE (23:30)
[2021-08-28] MEDS ORDERED: NITROFURANTOIN/MONOHYDRATE MACROCRYSTALS 100 MG CAPSULE ONE (23:32)
--- NOTE | 2021-08-29 00:02 | NUR ---
Patient discharged in stable condition. Written and verbal after care instructions given. Patient verbalizes understanding of instruction.
--- NOTE | 2021-08-29 00:02 | NUR ---
pt waiting for transportation
--- NOTE | 2021-08-29 00:21 | NUR ---
CALLED [facility] FOR TRANSPORTATION; NO BARIATRIC GURNEYS AVAILABLE.
--- NOTE | 2021-08-29 00:25 | NUR ---
CALLED [facility] FOR TRANSPORTATION; NO BARIATRIC GURNEYS AVAILABLE.
--- NOTE | 2021-08-29 00:54 | NUR ---
CALLED [id number] FOR TRANSPORTATION, NO AVAILABLE TRANSPORT.
--- NOTE | 2021-08-29 06:28 | NUR ---
PT SLEPT WELL THROUGHOUT THE NIGHT. VSS. PT IN NO ACUTE DISTRESS AT THIS TIME.
--- NOTE | 2021-08-29 07:47 | NUR ---
[facility] CALLED ETA 60 MINS PER SHARI.
--- NOTE | 2021-08-29 08:14 | NUR ---
THE PATIENT IS RECEIVED IN ER BED #6. THE PATIENT TAKING NAP. IN NO APPARENT DISTRESS. RESPIRATION REGULAR AND UNLABORED. WILL CONTINUE TO MONITOR THE PATIENT.
--- NOTE | 2021-08-29 08:55 | NUR ---
THE PATIENT IS ALERT AND ORIENTED X4. DENIES PAIN. IN ROOM AIR AND DENIES SOB. RESPIRATION REGULAR AND UNLABORED. WILL CONTINUE TO MONITOR THE PATIENT.
--- NOTE | 2021-08-29 09:18 | NUR ---
PICKED UP BY TRANSPORT IN STABLE CONDITION
--- NOTE | 2021-08-29 09:18 | NUR ---
REPORT GVEN TO AMBULANCE STAFF
[2021-08-29 09:30] LABS: BACTERIA,URINE Few /HPF (None Seen); SQUAMOUS EPITHELIAL CELL,UR Few /HPF (None Seen); WBC,URINE 15-30 /HPF (0-3)
[2021-08-29 09:36] VITALS: BP 153/76
--- NOTE | 2021-08-29 09:36 | NUR ---
Patient discharged to home in stable condition. Written and verbal after care instructions given. Patient verbalizes understanding of instruction. The patient is picked up via arranged ambulance.
== END 2021-08-29 09:37 | disposition home or self-care (01) ==
LOC: ER 20:44
DX: N39.0 Urinary tract infection, site not specified (principal); N17.9 Acute kidney failure, unspecified; I10 Essential (primary) hypertension; Z79.891 Long term (current) use of opiate analgesic; Z79.52 Long term (current) use of systemic steroids; Z79.899 Other long term (current) drug therapy
CPT/HCPCS: 36415; 80048-TC; 80076-TC; 81001; 83690-TC; 85025-TC; 85730-TC; 87086-TC; 87186-TC